=== PATIENT | female | born 1945 ===

== ENCOUNTER 2021-08-14 15:35 | Inpatient (IN) ==
[2021-08-14] MEDS ORDERED: PHENYLEPHRINE DRIP 40 MG/250 ML PREMIX IV ONE (16:59)
[2021-08-14] MEDS ORDERED: ONDANSETRON 4 MG/2 ML VIAL IV PRN (17:19)
[2021-08-14] MEDS ORDERED: GLUCAGON 1 MG VIAL IM PRN (17:23)
[2021-08-14] MEDS ORDERED: ENOXAPARIN 40 MG/0.4 ML SYRINGE SUBCUT SCH (17:30)
[2021-08-14] MEDS ORDERED: INFLUENZA VIRUS VACCINE 0.5 ML SYRINGE IM ONE (18:04)
[2021-08-14 18:07] LABS: ABG Oxygen Saturation 99.1 % (95-100); ABG PCO2 36.5 MM HG (35-48); ABG TCO2 12.2 MMOL/L (23-27)
[2021-08-14 18:15] LABS: Basophils # 0.1 10*3/uL (0.0-0.2); Basophils % 0.5 % (0.0-0.8); Eosinophils # 0.1 10*3/uL (0.0-0.87); Eosinophils % 0.4 % (0.00-10.9); Hematocrit 33.6 VOL% (35.7-47.0); Hemoglobin 10.4 GM/DL (12.0-16.0); Immature Granulocytes % 1.7 %; Immature Granulocytes Absolute 0.22 #; Lymphocytes # 2.7 10*3/uL (1.4-4.0); Lymphocytes % 20.3 % (21.3-54.2); Monocytes % 3.3 % (1.7-12.7); NRBC # 0.03 10*3/uL; Neutrophils % 73.8 % (38.7-73.9); Platelet Count 212 T/CUMM (130-400); Red Blood Count 3.17 MC/CUMM (3.8-5.5); Red Cell Distribution Width 14.1 % (9.3-17.3); White Blood Count 13.2 T/CUMM (4-12)
[2021-08-14] MEDS ORDERED: SODIUM BICARBONATE 50 MEQ/50 ML VIAL IV ONE ×2 (18:17→23:24)
[2021-08-14] MEDS ORDERED: SODIUM BICARBONATE 50 MEQ/50 ML SYRINGE IV ONE (18:19)
[2021-08-14] MEDS ORDERED: NOREPINEPHRINE 4 MG/4 ML VIAL IV ONE ×2 (18:22→18:23)
[2021-08-14] MEDS: NOREPINEPHRINE 8 MG in SODIUM CHLORIDE 0.9% 242 ML IV PRN ×2 (18:28→20:20)
[2021-08-14 18:29] LABS: INR 1.5; PT Patient Result 16.8 SECS (10.5-12.0)
[2021-08-14] MEDS ORDERED: PANTOPRAZOLE 40 MG VIAL IV SCH ×2 (18:30→21:00)
[2021-08-14] MEDS: SODIUM BICARB INJ 150 MEQ in STERILE WATER INJ 1,000 ML IV SCH (18:30)
[2021-08-14 18:34] LABS: Band Neutrophils 20 % (0-10); Lymphocytes 16 % (20-55); Metamyelocytes 1 %; Myelocytes 1 %; Segmented Neutrophils 62 % (50-85); Total Cells Counted 100
[2021-08-14 18:36] LABS: Anisocytosis 2+; Hypochromasia Slight; Macrocytosis 2+; Microcytosis Slight; Platelet Estimate Normal; Polychromasia Few
[2021-08-14 18:37] LABS: Albumin 2.4 G/DL (3.4-5.0); Bilirubin,Total 1.8 MG/DL (0.20-1.00); Osmolality,Calculated 292.3 MOS/KG (273-304); Potassium 3.7 MMOL/L (3.5-5.1); Total Protein 4.8 G/DL (6.4-8.2)
[2021-08-14] MEDS ORDERED: SODIUM CHLORIDE 0.9% 1,000 ML IV ONE (18:39)
[2021-08-14 18:50] LABS: Acetaminophen 4.4 UG/ML (10-30); Salicylate < 2.8 MG/DL (2.8-20)
[2021-08-14 18:52] LABS: Free T4 (Free Thyroxine) 1.32 NG/DL (0.76-1.46); Thyroid Stimulating Hormone 1.92 uIU/ml (0.358-3.74)
[2021-08-14] MEDS: PHENYLEPHRINE DRIP 40 MG/250 ML PREMIX IV PRN ×2 (19:35→22:15)
[2021-08-14 19:51] LABS: Barbiturates Screen,Urine Negative (Negative); Benzodiazepines Screen,Urine Negative (Negative); Cannabinoid Screen,Urine Negative (Negative); Opiate Screen,Urine Negative (Negative); Phencyclidine Screen,Urine Negative (Negative)
[2021-08-14 19:53] LABS: Bacteria,Urine Occasional /HPF (Few); Bilirubin,Urine Negative (Negative); Blood, Urine Large mg/dL (Negative); Glucose,Urine (UA) 50 mg/dL (Negative); Ketones,Urine 5 mg/dL (Negative); Mucus,Urine Occasional /LPF (Occasional); Nitrite,Urine Negative (Negative); Protein,Urine 100 MG/DL; RBC,Urine 37 /HPF (0-4); Transitional Epi Cells,Urine Occasional /HPF (<1); Urine Appearance CLOUDY (Clear); Urine Color Amber (Yellow); Urine Specific Gravity 1.013 (1.001-1.035)
[2021-08-14] MEDS: ENOXAPARIN 60 MG/0.6 ML SYRINGE SUBCUT SCH (20:49)
[2021-08-14] MEDS: PIPERACILLIN/TAZOBACTAM 3,375 MG in SODIUM CHLORIDE 0.9% 100 ML IV SCH (21:00)
[2021-08-14] MEDS ORDERED: SODIUM CHLORIDE 0.9% 500 ML IV ONE ×2 (21:47→22:29)
[2021-08-14 23:13] LABS: ABG Base Excess -20.2 MMOL/L (-2.5-2.5); ABG HCO3 9.6 MMOL/L (20-26); ABG Oxygen Saturation 94.7 % (95-100); ABG PCO2 28.1 MM HG (35-48); ABG PO2 98.6 MM HG (80-95); ABG TCO2 8.2 MMOL/L (23-27)
[2021-08-14] MEDS: NOREPINEPHRINE 16 MG in SODIUM CHLORIDE 0.9% 234 ML IV PRN (23:16)
[2021-08-14 23:19] LABS: ABG PH 7.092 (7.35-7.45)
[2021-08-14 23:31] LABS: Albumin 1.9 G/DL (3.4-5.0); Bilirubin,Total 1.8 MG/DL (0.20-1.00); Calcium 6.1 MG/DL (8.5-10.1); Osmolality,Calculated 293.3 MOS/KG (273-304); Potassium 3.1 MMOL/L (3.5-5.1); Total Protein 3.8 G/DL (6.4-8.2)
[2021-08-14] MEDS: DEXTROSE 50% 25 GM/50 ML SYRINGE IV PRN (23:35)
[2021-08-15] MEDS: HYDROCORTISONE 100 MG VIAL IV SCH ×3 (00:15→17:06)
[2021-08-15] MEDS: PHENYLEPHRINE INJ 160 MG in SODIUM CHLORIDE 0.9% 234 ML IV PRN ×2 (00:20→11:04)
[2021-08-15] MEDS ORDERED: POTASSIUM CHLORIDE RIDER 20 MEQ/100 ML PREMIX IV PRN (00:59)
[2021-08-15] MEDS ORDERED: POTASSIUM CHLORIDE RIDER 10 MEQ/100 ML PREMIX IV PRN ×2 (00:59)
[2021-08-15 03:15] LABS: ABG Base Excess -20.3 MMOL/L (-2.5-2.5); ABG HCO3 9.7 MMOL/L (20-26); ABG Oxygen Saturation 93.4 % (95-100); ABG PCO2 23.5 MM HG (35-48); ABG PO2 88.3 MM HG (80-95); ABG TCO2 7.4 MMOL/L (23-27)
[2021-08-15 03:16] LABS: ABG PH 7.133 (7.35-7.45)
[2021-08-15 03:28] LABS: Basophils % 0.2 % (0.0-0.8); Eosinophils % 0.1 % (0.00-10.9); Hemoglobin 10.7 GM/DL (12.0-16.0); Immature Granulocytes % 1.6 %; Immature Granulocytes Absolute 0.19 #; Lymphocytes # 1.3 10*3/uL (1.4-4.0); Lymphocytes % 10.4 % (21.3-54.2); Mean Corpuscular HGB Conc 29.7 GM/DL (32-36); Mean Corpuscular Volume 108.4 FL (87-102); Mean Platelet Volume 10.5 FL (9.6-12.0); Monocytes % 5.6 % (1.7-12.7); NRBC # 0.08 10*3/uL; Neutrophils % 82.1 % (38.7-73.9); Platelet Count 184 T/CUMM (130-400); Red Blood Count 3.32 MC/CUMM (3.8-5.5); Red Cell Distribution Width 14.6 % (9.3-17.3); White Blood Count 12.2 T/CUMM (4-12)
[2021-08-15] MEDS ORDERED: SODIUM BICARBONATE 50 MEQ/50 ML VIAL IV ONE (03:34)
[2021-08-15] MEDS ORDERED: SODIUM CHLORIDE 0.9% 500 ML IV ONE (03:35)
[2021-08-15 03:57] LABS: Albumin 2.2 G/DL (3.4-5.0); Bilirubin,Total 2.3 MG/DL (0.20-1.00); Calcium 6.5 MG/DL (8.5-10.1); Osmolality,Calculated 294.3 MOS/KG (273-304); Potassium 4.3 MMOL/L (3.5-5.1); Total Protein 4.3 G/DL (6.4-8.2)
[2021-08-15] MEDS: NOREPINEPHRINE 16 MG in SODIUM CHLORIDE 0.9% 234 ML IV PRN ×3 (04:05→14:05)
[2021-08-15 04:13] LABS: Band Neutrophils 3 % (0-10); Lymphocytes 14 % (20-55); Nucleated Red Blood Cells 1 (0-5); Platelet Estimate Adequate; Segmented Neutrophils 80 % (50-85); Total Cells Counted 100
[2021-08-15 04:14] LABS: Hypochromasia Slight; Microcytosis Slight
[2021-08-15] MEDS: DEXTROSE 50% 25 GM/50 ML SYRINGE IV PRN ×3 (04:15→12:04)
[2021-08-15] MEDS: PIPERACILLIN/TAZOBACTAM 3,375 MG in SODIUM CHLORIDE 0.9% 100 ML IV SCH ×2 (04:25→12:11)
[2021-08-15] MEDS: SODIUM BICARB INJ 150 MEQ in DEXTROSE 5% 1,000 ML IV SCH ×2 (06:05→17:30)
[2021-08-15] MEDS: SODIUM BICARB INJ 150 MEQ in STERILE WATER INJ 1,000 ML IV SCH (06:10)
[2021-08-15] MEDS: ENOXAPARIN 60 MG/0.6 ML SYRINGE SUBCUT SCH (08:43)
[2021-08-15] MEDS ORDERED: NOREPINEPHRINE 4 MG/4 ML VIAL IV ONE (09:12)
[2021-08-15 16:51] LABS: ABG Base Excess -20.9 MMOL/L (-2.5-2.5); ABG HCO3 9.1 MMOL/L (20-26); ABG PCO2 22.6 MM HG (35-48)
[2021-08-15 17:00] LABS: ABG PH 7.119 (7.35-7.45)
== END 2021-08-15 17:58 | disposition expired | DRG 296 ==
LOC: N.ICU 17:13
PROVIDERS: ADMIT Family Medicine; ATTEND Family Medicine